=== PATIENT | male | born 2000 | race Caucasian/White ===

== ENCOUNTER 2023-01-12 03:30 | Emergency (ER) | payer OTHER ==
[~2023-01-12] VITALS: Ht 170.2 cm; Wt 97.5 kg
--- NOTE | 2023-01-12 03:30 | NUR ---
PT MARY [facility]OSOP FOR PRE BOOK MEDICAL CLEARANCE EXAM
[2023-01-12 03:44] VITALS: BP 142/85; PULSE 94; RESP 20; TEMP 98.3; O2SAT 98
--- NOTE | 2023-01-12 03:44 | NUR ---
DR BONNER EXAMINING PT
[2023-01-12 03:45] VITALS: BP 142/85; PULSE 94; RESP 20; TEMP 98.3; O2SAT 98
--- NOTE | 2023-01-12 03:45 | NUR ---
Patient discharged with v/s stable. Written and verbal after care instructions given and explained. Patient verbalized understanding. Police with in custody. All questions addressed prior to discharge. Advised to follow up with PMD.
== END 2023-01-12 03:45 ==
LOC: MED 03:30
DX: Z02.89 Encounter for other administrative examinations (principal); R03.0 Elevated blood-pressure reading, without diagnosis of hypertension; Z98.890 Other specified postprocedural states; V43.52XA Car driver injured in collision with other type car in traffic accident, initial encounter; Y93.89 Activity, other specified; Y92.410 Unspecified street and highway as the place of occurrence of the external cause; Y99.8 Other external cause status
CPT/HCPCS: 99283